=== PATIENT | female | born 1980 | race Caucasian/White ===

== ENCOUNTER 2016-11-04 13:29 | Emergency (ER) | payer OTHER ==
[~2016-11-04] VITALS: Ht 162.6 cm; Wt 52.5 kg
[~2016-11-04 13:29] MED LIST: ADDERALL; FLAGYL500 MG PO; MOTRIN600 MG PO; ULTRAM50 MG PO
[2016-11-04 14:04] LABS: HEMATOCRIT 41.2 % (36.0-46.0); MCH 30.3 PG (29.0-34.0); MCHC 33.3 G/DL (30.0-36.0); MCV 91.2 FL (83-99); MEAN PLAT.VOLUME 10.5 uM^3 (9.5-12.4); PLATELET COUNT 238 K/uL (156-360); RBC DIS.WIDTH-CV 12.3 % (11.8-14.6); RBC DIS.WIDTH-SD 40.9 % (39-53); RED BLOOD COUNT 4.52 M/uL (3.80-5.20); WHITE BLOOD COUNT 4.9 K/uL (4.1-10.2)
[2016-11-04 14:13] LABS: CHLORIDE 110 mEq/L (99-109); POTASSIUM 4.5 mEq/L (3.7-5.4); SODIUM 142 mEq/L (136-147)
[2016-11-04 14:15] LABS: GLUCOSE 94 mg/dL (70-99)
[2016-11-04 14:16] LABS: ANION GAP 10 MEQ/L (2-14)
[2016-11-04 14:17] LABS: TOTAL BILIRUBIN 0.2 mg/dL (0.0-1.0)
[2016-11-04 14:18] LABS: ALKALINE PHOSPHATASE 69 IU/L (3-129)
[2016-11-04 14:19] LABS: GFR ESTIMATE (CALCULATED) > 59 mL/min/
[2016-11-04 14:20] LABS: UREA NITROGEN (BUN) 8 mg/dL (9-23)
[2016-11-04 14:29] LABS: QUANTITATIVE HCG < 4.0 MIU/ML
[2016-11-04 16:07] VITALS: BP 145/81
== END 2016-11-04 16:08 | disposition home or self-care (01) ==
LOC: EME 13:29
DX: N92.0 Excessive and frequent menstruation with regular cycle (principal); F17.200 Nicotine dependence, unspecified, uncomplicated
CPT/HCPCS: 80053; 84439; 84443; 84702; 85027; 99281; 99282

== ENCOUNTER 2017-07-17 15:47 | Emergency (ER) | payer OTHER ==
[~2017-07-17] VITALS: Ht 160 cm; Wt 51.8 kg
[2017-07-17] MEDS ORDERED: TRAZODONE HCL50 MG PO (16:18)
[2017-07-17] MEDS ORDERED: CATAPRES0.1 MG PO (16:18)
[2017-07-17] MEDS ORDERED: ZOFRAN ODT4 MG PO (16:41)
[2017-07-17 16:47] VITALS: BP 153/113
== END 2017-07-17 16:47 | disposition home or self-care (01) ==
LOC: EME 15:47
DX: F11.23 Opioid dependence with withdrawal (principal); T40.2X6A Underdosing of other opioids, initial encounter; Z91.138 Patient's unintentional underdosing of medication regimen for other reason; R11.0 Nausea; R10.9 Unspecified abdominal pain; F43.10 Post-traumatic stress disorder, unspecified; F41.9 Anxiety disorder, unspecified; Z88.0 Allergy status to penicillin; F17.200 Nicotine dependence, unspecified, uncomplicated
CPT/HCPCS: 99281; 99283

== ENCOUNTER 2017-08-08 06:44 | Day surgery (SDC) | payer OTHER ==
[~2017-08-08] VITALS: Ht 162.6 cm; Wt 57.2 kg
[~2017-08-08 06:44] MED LIST changes: -ADDERALL; +ADDERALL XR 1515 MG PO; +ADVIL200 MG PO; +BUPRENORPHINE HC8 MG SL; +CATAPRES0.1 MG PO; +KLONOPIN0.5 M1 PO; +NEURONTIN300 MG PO; +ONE DAILY WOME1 EACH PO; +TRAZODONE HCL50 MG PO; +ZOFRAN ODT4 MG PO
[2017-08-08] MEDS ORDERED: SUBOXONE 2 MG-1 EACH SL (07:06)
[2017-08-08 07:14] VITALS: BP 143/78
[2017-08-08 07:16] LABS: HEMATOCRIT 39.6 % (36.0-46.0); HEMOGLOBIN 13.5 G/DL (11.9-15.5); MCHC 34.1 G/DL (30.0-36.0); PLATELET COUNT 216 K/uL (156-360); RBC DIS.WIDTH-CV 12.9 % (11.8-14.6); RBC DIS.WIDTH-SD 41.9 % (39-53); WHITE BLOOD COUNT 4.8 K/uL (4.1-10.2)
[2017-08-08] MEDS ORDERED: MOTRIN600 MG PO (08:36)
[2017-08-08 09:15] VITALS: BP 120/78
[2017-08-08 10:22] VITALS: BP 129/77
== END 2017-08-08 10:35 | disposition home or self-care (01) ==
LOC: SDC 06:44
PROVIDERS: Obstetrics & Gynecology
DX: N93.9 Abnormal uterine and vaginal bleeding, unspecified (principal); N84.0 Polyp of corpus uteri; N85.4 Malposition of uterus
CPT/HCPCS: 84702; 85027; 86850; 86900; 86901; 88305; J0131; J1100; J1885; J2405; J3010

== ENCOUNTER 2017-10-16 17:03 | Emergency (ER) | payer OTHER ==
[~2017-10-16] VITALS: Ht 162.6 cm; Wt 59.3 kg
[~2017-10-16 17:03] MED LIST changes: +SUBOXONE 2 MG-1 EACH SL
[2017-10-16 17:36] VITALS: BP 149/79
[2017-10-16] MEDS ORDERED: BACTRIM,SEPT1 TABLET PO (18:46)
[2017-10-16] MEDS ORDERED: KEFLEX500 MG PO (18:46)
== END 2017-10-16 18:56 | disposition home or self-care (01) ==
LOC: EME 17:03
PROC: 0H9DXZZ Drainage of Right Lower Arm Skin, External Approach (ICD-10-PCS; principal; 2017-10-16)
DX: L02.413 Cutaneous abscess of right upper limb (principal); L03.113 Cellulitis of right upper limb; Z88.0 Allergy status to penicillin
CPT/HCPCS: 99281; 99284